=== PATIENT | male | born 1970 | race Caucasian/White ===

== ENCOUNTER → 2025-09-15 08:21 | Outpatient (BNVA) | payer BC, SELFPAY | PROVIDERS: PCP Physician Assistant; Visit Provider Podiatrist Foot & Ankle Surgery | DX: M79.672 Pain in left foot (principal); M21.612 Bunion of left foot; M20.22 Hallux rigidus, left foot; Z87.39 Personal history of other diseases of the musculoskeletal system and connective tissue | CPT/HCPCS: 73630 ==